=== PATIENT | male | born 1980 | race Two or more races ===

== ENCOUNTER 2017-04-21 19:34 | Emergency (ER) | payer SELFPAY ==
[~2017-04-21] VITALS: Ht 175.3 cm; Wt 77.1 kg
[2017-04-21] MEDS ORDERED: SODIUM CHLORIDE 0.9% 1,000 ML IV ONE (21:30)
[2017-04-21 21:36] LABS: Urine Bilirubin Negative (Negative); Urine Blood Negative /uL (Negative); Urine Color Yellow (Yellow); Urine Glucose Normal (Normal); Urine Ketone Negative (Negative); Urine Mucus FEW (None Seen); Urine Nitrite Negative (Negative); Urine RBC <1 /hpf (0 - 3); Urine Squamous Epithelial Cell FEW /hpf (<5); Urine Urobilinogen Normal (Negative)
[2017-04-21 21:38] LABS: CONDITION Y; Hematocrit 49.4 % (41.0-53.0); Hemoglobin 16.9 g/dL (13.5-17.5); Mean Corpuscular Hemoglobin 31.4 pg (28.0-32.0); Mean Corpuscular Hgb Conc. 34.3 g/dL (32.0-36.0); Mean Corpuscular Volume 91.7 fL (80.0-100.0); Mean Platelet Volume 9.6 fL (7.4-10.4); Platelet Count (auto) 207 10^3/uL (140-450); Red Cell Distribution Width 13.3 % (11.6-16.0); SUSPECT SEE PRINTOUT; White Blood Cell 22.9 10^3/uL (4.4-10.8)
[2017-04-21 21:50] LABS: Metamyelocytes % 0; Myelocytes % 0; Promyelocytes % 0; Reactive Lymphocytes 0
[2017-04-21 21:58] LABS: BUN/Creatinine Ratio 15.1; Bilirubin, Total 0.3 mg/dL (0.2-1.0); Calcium 8.3 mg/dL (8.5-10.1); Total Protein 7.5 g/dL (6.4-8.2)
[2017-04-21 22:14] LABS: Platelet Estimate Adequate; RBC Morphology Normal
[2017-04-21 23:33] VITALS: BP 126/79
== END 2017-04-22 00:55 | disposition left against medical advice (07) ==
LOC: EDBD 19:34 → ER 19:43
DX: F10.120 Alcohol abuse with intoxication, uncomplicated (principal); Z53.21 Procedure and treatment not carried out due to patient leaving prior to being seen by health care provider
CPT/HCPCS: 36415; 80053; 80307; 80320; 80329; 81001; 85007; 85027; 96360; 99281; J7030